=== PATIENT | female | born 1985 | race Caucasian/White ===

== ENCOUNTER 2016-06-28 16:20 | Outpatient (CLI) ==
[2015-12-22 23:30] VITALS: BMI 25.7
== END 2016-06-28 16:21 ==
LOC: AMBL 16:20
PROVIDERS: ATTEND Family Medicine
DX: M54.2 Cervicalgia (principal); V43.62XA Car passenger injured in collision with other type car in traffic accident, initial encounter

== ENCOUNTER 2017-04-01 18:21 | Emergency (ER) ==
[2017-04-01 18:24] VITALS: BP 128/92; TEMP 99; BMI 27.6
[2017-04-01] MEDS ORDERED: TORADOL IM STA (18:33)
--- NOTE | 2017-04-01 18:36 | ED.PDOC ---
General ED Provider: Dr. SON BEARD Chief Complaint: Back Pain Stated Complaint: BACK PAIN Time Seen by Physician: 18:22 Mode of Arrival: Walk-In Information Source: Patient Exam Limitations: No limitations Primary Care Provider: WALTER GARLAND Nursing and Triage Documentation Reviewed and Agree: Yes Musculoskeletal Complaint Exam - Back Pain Complaint/Exam Mechanism of Injury: Reports: No known trauma Onset/Duration: 18:22 Symptoms Are: Still present Timing: Constant Episodes Lasting: Hours Initial Severity: Moderate Current Severity: Moderate Location: Reports: Discrete Character: Reports: Aching Aggravating: Reports: Lifting, Bending, Walking Alleviating: Reports: Rest, Position Associated Signs and Symptoms: Denies: Swelling, Redness, Bruising, Fever, Weakness, Numbness, Tingling, Abdominal pain, Flank pain, Bladder incontinence, Bowel incontinence, Weight loss, Pain with weight bearing Related History: Reports: Similar episode TAD Risk Factors: Reports: None AAA Risk Factors: Reports: None Cauda Equina Risk Factors: Reports: None Review of Systems - Review Of Systems Constitutional: Reports: No symptoms Eyes: Reports: No symptoms Ears, Nose, Mouth, Throat: Reports: No symptoms Respiratory: Reports: No symptoms Cardiac: Reports: No symptoms GI: Reports: No symptoms : Reports: No symptoms Musculoskeletal: Reports: Back pain Skin: Reports: No symptoms Neurological: Reports: No symptoms Endocrine: Reports: No symptoms Hematologic/Lymphatic: Reports: No symptoms All Other Systems: Reviewed and Negative Past Medical History - Past Medical History Previously Healthy: No Endocrine: Reports: None Cardiovascular: Reports: None Respiratory: Reports: None Hematological: Reports: None Gastrointestinal: Reports: None Genitourinary: Reports: Kidney stones Neuro/Psych: Reports: Depression Musculoskeletal: Reports: None Cancer: Reports: None Last Menstrual Period: n/a - Surgical History General Surgical History: Reports: Hysterectomy, Tubal ligation (2014), C- section (x2), Cholecystectomy, Other (Leep procedure, diagnostic laproscopy, ) - Family History Family History: Reports: Unknown - Social History Smoking Status: Current every day smoker Hx Substance Use: No Alcohol Screening: None Physical Exam - Physical Exam Appearance: Well-appearing, No pain distress, Well-nourished Eyes: KAMLESH, EOMI, Conjunctiva clear ENT: Ears normal, Nose normal, Oropharynx normal Respiratory: Airway patent, Breath sounds clear, Breath sounds equal, Respirations nonlabored Cardiovascular: RRR, Pulses normal, No rub, No murmur GI/: Soft, Nontender, No masses, Bowel sounds normal, No Organomegaly Musculoskeletal: Normal strength, ROM intact, No edema, No calf tenderness Skin: Warm, Dry, Normal color Neurological: Sensation intact, Motor intact, Reflexes intact, Cranial nerves intact, Alert, Oriented Psychiatric: Affect appropriate, Mood appropriate Critical Care Note - Critical Care Note Total Time (mins): 0 Course - Course Orders, Labs, Meds: Orders Category Date Time Status Ketorolac Tromethamine [Toradol] MEDS 04/01/17 18:33 Stat 30 mg IM ONCE STA Medications Generic Name Dose Route Start Last Admin Trade Name Freq PRN Reason Stop Dose Admin Ketorolac Tromethamine 30 mg 04/01/17 18:33 Toradol IM 04/01/17 18:34 ONCE STA Vital Signs: Temp Pulse Resp BP Pulse Ox 04/01/17 18:22 99.0 F 94 H 16 128/92 H 98 Departure - Departure Time of Disposition: 18:35 Disposition: HOME SELF-CARE Discharge Problem: Backache Instructions: Acute Low Back Pain (ED) Condition: Good Pt referred to PMD for follow-up: Yes Additional Instructions: Please call your Family Physician as soon as possible to schedule a follow-up appointment. Allergies/Adverse Reactions: Allergies Penicillins Allergy (Mild, Verified 12/19/15 20:22) stomach cramps codeine Adverse Reaction (Verified 04/01/17 18:25) latex Adverse Reaction (Verified 12/19/15 20:22) Hives tramadol Adverse Reaction (Verified 04/01/17 18:25) Home Medications: Ambulatory Orders Citalopram Hydrobromide [Celexa] 40 mg PO DAILY 08/09/14 Olanzapine [Zyprexa] 5 mg PO BEDTIME 04/01/17 Omeprazole [Prilosec] 20 mg PO QDAC 04/01/17 Quetiapine Fumarate [Seroquel] 25 mg PO BEDTIME 04/01/17
== END 2017-04-01 19:08 | disposition home or self-care (01) ==
LOC: ED 18:21
DX: M54.9 Dorsalgia, unspecified (principal); F17.210 Nicotine dependence, cigarettes, uncomplicated
CPT/HCPCS: 96372; 99283

== ENCOUNTER 2017-04-22 18:41 | Emergency (ER) ==
[2017-04-22 18:41] VITALS: BMI 27.6
[2017-04-22 18:48] VITALS: BP 164/88; TEMP 99.1
--- NOTE | 2017-04-22 18:55 | ED.PDOC ---
General ED Provider: Dr. JETT SANTANA-ER Chief Complaint: Back Pain Stated Complaint: i hurt my back Time Seen by Physician: 18:53 Mode of Arrival: Walk-In Information Source: Patient, Family Exam Limitations: No limitations Primary Care Provider: WALTER GARLAND Nursing and Triage Documentation Reviewed and Agree: Yes Reviewed sepsis parameters & appropriate labs ordered?: Yes System Inflammatory Response Syndrome: Not Applicable Sepsis Protocol: For patient's 13 years and over: Temp is 96.8 and below OR 101 and greater Pulse >90 BPM Resp >20/minute Acutely Altered Mental Status Are patient's symptoms suggestive of a new infection, such as: -Pneumonia -Skin, Soft Tissue -Endocarditis -UTI -Bone, Joint Infection -Implantable Device -Acute Abdominal Infection -Wound Infection -Meningitis -Blood Stream Catheter Infection -Unknown Musculoskeletal Complaint Exam - Back Pain Complaint/Exam Mechanism of Injury: Reports: No known trauma Onset/Duration: 24hrs Symptoms Are: Still present Timing: Constant Initial Severity: Mild Current Severity: Moderate Location: Reports: Discrete Character: Reports: Dull, Spasmodic Aggravating: Reports: Movements, Lifting, Bending Alleviating: Reports: None Associated Signs and Symptoms: Denies: Swelling, Redness, Bruising, Fever, Weakness, Numbness, Tingling, Abdominal pain, Flank pain, Bladder incontinence, Bowel incontinence, Weight loss, Pain with weight bearing TAD Risk Factors: Reports: None AAA Risk Factors: Reports: None Cauda Equina Risk Factors: Reports: None Epidural Abcess Risk Factors: Reports: None Focal Tenderness: Yes Paraspinal Muscle Tenderness: Yes Paraspinal Muscle Spasm: No Scoliosis: No Lordosis: No Kyphosis: No SLR Test: Right Negative, Left Negative Hip Motion Testing Pain: Right Negative, Left Negative Focal Weakness: Present: None Focal Sensory Loss: Present: None Gait: Present: Abnormal Differential Diagnoses: Strain, Sprain Review of Systems - Review Of Systems Constitutional: Reports: No symptoms Eyes: Reports: No symptoms Ears, Nose, Mouth, Throat: Reports: No symptoms Respiratory: Reports: No symptoms Cardiac: Reports: No symptoms GI: Reports: No symptoms : Reports: No symptoms Musculoskeletal: Reports: Back pain, Muscle pain Skin: Reports: No symptoms Neurological: Reports: No symptoms Endocrine: Reports: No symptoms Hematologic/Lymphatic: Reports: No symptoms All Other Systems: Reviewed and Negative Past Medical History - Past Medical History Previously Healthy: No Endocrine: Reports: None Cardiovascular: Reports: None Respiratory: Reports: None Hematological: Reports: None Gastrointestinal: Reports: None Genitourinary: Reports: Kidney stones Neuro/Psych: Reports: Depression Musculoskeletal: Reports: None Cancer: Reports: None Last Menstrual Period: hysterectomy - Surgical History General Surgical History: Reports: Hysterectomy, Tubal ligation (2014), C- section (x2), Cholecystectomy, Other (Leep procedure, diagnostic laproscopy, ) - Family History Family History: Reports: Unknown - Social History Smoking Status: Current every day smoker Hx Substance Use: No Alcohol Screening: None Lives: With family Physical Exam - Physical Exam Appearance: Well-appearing, No pain distress, Well-nourished Pain Distress: Moderate Eyes: KAMLESH, EOMI, Conjunctiva clear ENT: Ears normal, Nose normal, Oropharynx normal Neck: Supple Respiratory: Airway patent, Breath sounds clear, Breath sounds equal, Respirations nonlabored Cardiovascular: RRR, Pulses normal, No rub, No murmur GI/: Soft, Nontender, No masses, Bowel sounds normal, No Organomegaly Musculoskeletal: Limited ROM Skin: Warm, Dry, Normal color Neurological: Sensation intact, Motor intact, Reflexes intact, Cranial nerves intact, Alert, Oriented Psychiatric: Affect appropriate, Mood appropriate Critical Care Note - Critical Care Note Total Time (mins): 0 Course - Course Vital Signs: Temp Pulse Resp BP Pulse Ox 04/22/17 18:41 99.1 F 106 H 20 164/88 H 99 Departure - Departure Time of Disposition: 18:55 Disposition: HOME SELF-CARE Discharge Problem: Lumbar strain Qualifiers: Encounter type: initial encounter Qualified Code(s): S39.012A - Strain of muscle, fascia and tendon of lower back, initial encounter Instructions: Low Back Strain (ED) Condition: Good Pt referred to PMD for follow-up: Yes Additional Instructions: percocet 5mg q 6hrs prn pain #10---flexeril 10mg tid #21--heat alt ice--f/u with pcp Allergies/Adverse Reactions: Allergies Penicillins Allergy (Mild, Verified 12/19/15 20:22) stomach cramps codeine Adverse Reaction (Verified 04/01/17 18:25) ketorolac [From Toradol] Adverse Reaction (Verified 04/22/17 18:49) latex Adverse Reaction (Verified 08/22/16 20:22) Hives tramadol Adverse Reaction (Verified 04/01/17 18:25) Home Medications: Ambulatory Orders Citalopram Hydrobromide [Celexa] 40 mg PO DAILY 08/09/14 Olanzapine [Zyprexa] 5 mg PO BEDTIME 04/01/17 Omeprazole [Prilosec] 20 mg PO QDAC 04/01/17 Quetiapine Fumarate [Seroquel] 25 mg PO BEDTIME 04/01/17 Disposition Discussed With: Patient, Family
== END 2017-04-22 19:03 | disposition home or self-care (01) ==
LOC: ED 18:41
DX: S39.012A Strain of muscle, fascia and tendon of lower back, initial encounter (principal); F17.210 Nicotine dependence, cigarettes, uncomplicated
CPT/HCPCS: 99282

== ENCOUNTER 2017-05-06 19:29 | Emergency (ER) ==
[2017-05-06 19:30] VITALS: BMI 27.6
[2017-05-06 19:37] VITALS: BP 131/90; TEMP 99.5
[2017-05-06] MEDS ORDERED: PHENERGAN 25 MG/ML VIAL IM STA (20:14)
[2017-05-06] MEDS ORDERED: DILAUDID 2 MG/ML SYRINGE IM STA (20:14)
--- NOTE | 2017-05-06 21:47 | CT ---
EXAM: CT of the abdomen and pelvis without contrast. HISTORY: Flank pain. Low back pain. PROCEDURE: Contiguous axial CT images of the abdomen and pelvis without contrast with coronal and sa gittal reformats. FINDINGS: The liver is normal in appearance. The gallbladder is surgically absent. The pancreas, sp taz, adrenal glands and kidneys are normal in appearance. No nephrolithiasis or hydronephrosis. The ureters are incompletely visualized. The abdominal aorta is normal in appearance. There are a few l oops of air and fluid-filled small bowel measuring up to 3 cm in diameter. The appendix is not defin itely visualized. The colon is normal in appearance. No free fluid or free air in the abdomen or pe lvis. The bladder is adequately filled with no abnormality identified. The uterus is surgically abse nt. The bones and soft tissues are unremarkable. Impression: No nephrolithiasis or hydronephrosis. The ureters are incompletely visualized and a non- obstructing ureterolith cannot be excluded. Nonspecific nonobstructive bowel gas pattern as described. Cholecystectomy. Hysterectomy.
--- NOTE | 2017-05-06 21:47 | CT ---
EXAM: CT lumbar spine without contrast HISTORY: Low back pain COMPARISON: None TECHNIQUE: CT lumbar spine performed without intravenous contrast. Coronal and sagittal reformatted images obtained. FINDINGS: Vertebral bodies normal height. No fracture. No subluxation. Intervertebral disc spaces maintained. Sacroiliac joints intact. Central canal and neural foramen grossly patent. No paraver tebral soft tissue abnormality. Please see separate report CT abdomen pelvis regarding findings in th e abdomen and pelvis. IMPRESSION: No fracture or subluxation.
--- NOTE | 2017-05-06 21:52 | ED.PDOC ---
General ED Provider: Dr. JETT SANTANA-ER Chief Complaint: Back Pain Stated Complaint: michela got back pain and im supposed to get mri of the back Time Seen by Physician: 19:35 Mode of Arrival: Walk-In Information Source: Patient Exam Limitations: No limitations Primary Care Provider: WALTER GARLAND Nursing and Triage Documentation Reviewed and Agree: Yes Reviewed sepsis parameters & appropriate labs ordered?: Yes System Inflammatory Response Syndrome: Not Applicable Sepsis Protocol: For patient's 13 years and over: Temp is 96.8 and below OR 101 and greater Pulse >90 BPM Resp >20/minute Acutely Altered Mental Status Are patient's symptoms suggestive of a new infection, such as: -Pneumonia -Skin, Soft Tissue -Endocarditis -UTI -Bone, Joint Infection -Implantable Device -Acute Abdominal Infection -Wound Infection -Meningitis -Blood Stream Catheter Infection -Unknown Musculoskeletal Complaint Exam - Back Pain Complaint/Exam Mechanism of Injury: Reports: No known trauma Onset/Duration: several weeks Symptoms Are: Still present Timing: Constant Initial Severity: Mild Current Severity: Moderate Location: Reports: Discrete Character: Reports: Dull, Aching, Stiffness Aggravating: Reports: Movements, Lifting, Walking Alleviating: Reports: None Associated Signs and Symptoms: Denies: Swelling, Redness, Bruising, Fever, Weakness, Numbness, Tingling, Abdominal pain, Flank pain, Bladder incontinence, Bowel incontinence, Weight loss, Pain with weight bearing Related History: Reports: Similar episode, Previous back injury Focal Tenderness: Yes Paraspinal Muscle Tenderness: Yes Paraspinal Muscle Spasm: No Scoliosis: No Focal Weakness: Present: None Focal Sensory Loss: Present: None Gait: Present: Normal Differential Diagnoses: Herniated Disk, Strain, Sprain Review of Systems - Review Of Systems Constitutional: Reports: No symptoms Eyes: Reports: No symptoms Ears, Nose, Mouth, Throat: Reports: No symptoms Respiratory: Reports: No symptoms Cardiac: Reports: No symptoms GI: Reports: No symptoms : Reports: No symptoms Musculoskeletal: Reports: Back pain, Muscle pain Skin: Reports: No symptoms Neurological: Reports: No symptoms Endocrine: Reports: No symptoms Hematologic/Lymphatic: Reports: No symptoms All Other Systems: Reviewed and Negative Past Medical History - Past Medical History Previously Healthy: No Endocrine: Reports: None Cardiovascular: Reports: None Respiratory: Reports: None Hematological: Reports: None Gastrointestinal: Reports: None Genitourinary: Reports: Kidney stones Neuro/Psych: Reports: Depression Musculoskeletal: Reports: None Cancer: Reports: None Last Menstrual Period: na - Surgical History General Surgical History: Reports: Hysterectomy, Tubal ligation (2014), C- section (x2), Cholecystectomy, Other (Leep procedure, diagnostic laproscopy, ) - Family History Family History: Reports: Unknown - Social History Smoking Status: Current every day smoker, Heavy tobacco smoker Hx Substance Use: No Alcohol Screening: None Lives: With family - Immunizations Tetanus Shot up to Date: Yes Physical Exam - Physical Exam Appearance: Well-appearing, No pain distress, Well-nourished Eyes: KAMLESH, EOMI, Conjunctiva clear ENT: Ears normal, Nose normal, Oropharynx normal Neck: Supple Respiratory: Airway patent, Breath sounds clear, Breath sounds equal, Respirations nonlabored Cardiovascular: RRR, Pulses normal, No rub, No murmur GI/: Soft, Nontender, No masses, Bowel sounds normal, No Organomegaly Musculoskeletal: Limited ROM Skin: Warm Neurological: Sensation intact, Motor intact, Reflexes intact, Cranial nerves intact, Alert, Oriented Psychiatric: Affect appropriate Interpretation - Radiology Interpretation Radiology Interpretation By: Radiologist Radiology Results: Negative Exam Interpreted: CT Scan Re-Evaluation - Re-Evaluation Time of Re-Evaluation: 21:52 Status: Improved Vital Signs Stable: Yes Pain Level: 2 Appearance: NAD Lungs: Clear Skin: Warm and Dry Neuro: Alert and Oriented X3 CV: RRR Critical Care Note - Critical Care Note Total Time (mins): 0 Course - Course Orders, Labs, Meds: Lab Review 05/06/17 05/06/17 20:15 20:17 Urine Color Yellow Urine Clarity Clear Urine pH 7.0 Ur Specific Lamar 1.010 Urine Protein Negative Urine Glucose (UA) Negative Urine Ketones Negative Urine Blood Trace-intact Urine Nitrite Negative Urine Bilirubin Negative Urine Urobilinogen 0.2 Ur Leukocyte Esterase Negative Urine Microscopic RBC 0-2 Ur Squamous Epith Cells Not present Urine Test Negative Orders Category Date Time Status UA [URINALYSIS C & S IF INDICATED] Stat LAB 05/06/17 20:15 Completed URINE Stat LAB 05/06/17 20:17 Completed Hydromorphone HCl/Pf [Dilaudid 2 mg/ml Syringe] MEDS 05/06/17 20:14 Discontinued 2 mg IM ONCE STA Promethazine HCl [Phenergan 25 mg/ml Vial] MEDS 05/06/17 20:14 Discontinued 25 mg IM ONCE STA CT ABDOMEN/PELVIS WO CONTRAST Stat RADS 05/06/17 20:[address] LUMBAR SPINE W/O CONTRAST Stat RADS 05/06/17 20:13 Completed Medications Discontinued Medications Generic Name Dose Route Start Last Admin Trade Name Christopher PRN Reason Stop Dose Admin Hydromorphone HCl 2 mg 05/06/17 20:14 05/06/17 20:28 Dilaudid 2 Mg/Ml Syringe IM 05/06/17 20:15 2 mg ONCE STA Administration Promethazine HCl 25 mg 05/06/17 20:14 05/06/17 20:28 Phenergan 25 Mg/Ml Vial IM 05/06/17 20:15 25 mg ONCE STA Administration Vital Signs: Temp Pulse Resp BP Pulse Ox 05/06/17 19:30 99.5 F 108 H 16 131/90 97 Departure - Departure Time of Disposition: 21:52 Disposition: HOME SELF-CARE Discharge Problem: Low back pain Qualifiers: Chronicity: acute Back pain laterality: midline Sciatica presence: without sciatica Qualified Code(s): M54.5 - Low back pain Instructions: Low Back Strain (GEN) Condition: Good Pt referred to PMD for follow-up: Yes Additional Instructions: f/u wtih pcp Allergies/Adverse Reactions: Allergies Penicillins Allergy (Mild, Verified 05/06/17 19:40) stomach cramps codeine Adverse Reaction (Verified 05/06/17 19:40) ketorolac [From Toradol] Adverse Reaction (Verified 05/06/17 19:40) latex Adverse Reaction (Verified 05/06/17 19:40) Hives tramadol Adverse Reaction (Verified 05/06/17 19:40) Home Medications: Ambulatory Orders Citalopram Hydrobromide [Celexa] 40 mg PO DAILY 08/09/14 Olanzapine [Zyprexa] 5 mg PO BEDTIME 04/01/17 Omeprazole [Prilosec] 20 mg PO QDAC 04/01/17 Quetiapine Fumarate [Seroquel] 25 mg PO BEDTIME 04/01/17 Ibuprofen 600 mg PO DIRECTED 05/06/17 Disposition Discussed With: Patient, Family
== END 2017-05-06 21:55 | disposition home or self-care (01) ==
LOC: ED 19:29
DX: M54.5 Low back pain (principal); F17.210 Nicotine dependence, cigarettes, uncomplicated
CPT/HCPCS: 81001; 81025; 96372; 99283

== ENCOUNTER 2017-05-25 19:38 | Emergency (ER) ==
[2017-05-25 19:38] VITALS: BMI 27.6
[2017-05-25 19:44] VITALS: BP 120/82; TEMP 98
[2017-05-25] MEDS ORDERED: PERCOCET 5-325 PO STA (19:58)
--- NOTE | 2017-05-25 20:01 | ED.PDOC ---
General ED Provider: Dr. ANTELMO HRENANDEZ Chief Complaint: Shoulder Pain/Injury Stated Complaint: Fell and injured the right shoulder, ever since more pain,. has h/o chronic pain. Time Seen by Physician: 20:00 Mode of Arrival: Walk-In Information Source: Patient Primary Care Provider: WALTER GARLAND Nursing and Triage Documentation Reviewed and Agree: Yes Reviewed sepsis parameters & appropriate labs ordered?: No System Inflammatory Response Syndrome: Not Applicable Sepsis Protocol: For patient's 13 years and over: Temp is 96.8 and below OR 101 and greater Pulse >90 BPM Resp >20/minute Acutely Altered Mental Status Are patient's symptoms suggestive of a new infection, such as: -Pneumonia -Skin, Soft Tissue -Endocarditis -UTI -Bone, Joint Infection -Implantable Device -Acute Abdominal Infection -Wound Infection -Meningitis -Blood Stream Catheter Infection -Unknown Musculoskeletal Complaint Exam - Shoulder Pain Complaint/Exam Mechanism of Injury: Reports: Trauma (fell and injured) Symptoms Are: Still present Timing: Constant Initial Severity: Moderate Current Severity: Moderate Location: Reports: Discrete Character: Reports: Aching, Throbbing Alleviating: Reports: None Aggravating: Reports: Movement, Lifting, Flexion, Extension Associated Signs and Symptoms: Denies: Swelling, Redness, Bruising, Fever, Weakness, Numbness, Tingling Related History: Reports: Similar episode (chronic pain) DVT Risk Factors: Reports: None Septic Arthritis Risk Factors: Reports: None Related Surgical History: Reports: None Tenderness: Present: Rotator cuff muscles Limited Range of Motion: Present: Abduction, Adduction, Flexion, Extension Differential Diagnoses: Arthritis, Closed Fracture Review of Systems - Review Of Systems Constitutional: Reports: No symptoms Eyes: Reports: No symptoms Ears, Nose, Mouth, Throat: Reports: No symptoms Respiratory: Reports: No symptoms Cardiac: Reports: No symptoms GI: Reports: No symptoms : Reports: No symptoms Musculoskeletal: Reports: Joint pain Skin: Reports: No symptoms Neurological: Reports: No symptoms Endocrine: Reports: No symptoms Hematologic/Lymphatic: Reports: No symptoms All Other Systems: Reviewed and Negative Past Medical History - Past Medical History Previously Healthy: No Endocrine: Reports: None Cardiovascular: Reports: None Respiratory: Reports: None Hematological: Reports: None Gastrointestinal: Reports: None Genitourinary: Reports: Kidney stones Neuro/Psych: Reports: Depression Musculoskeletal: Reports: None Cancer: Reports: None Last Menstrual Period: na - Surgical History General Surgical History: Reports: Hysterectomy, Tubal ligation (2014), C- section (x2), Cholecystectomy, Other (Leep procedure, diagnostic laproscopy, ) - Family History Family History: Reports: Unknown - Social History Smoking Status: Current every day smoker, Heavy tobacco smoker Smoking Cessation Counseling Time: > 10 min Hx Substance Use: No Alcohol Screening: None - Immunizations Tetanus Shot up to Date: Yes Physical Exam - Physical Exam Appearance: Ill-appearing Eyes: KAMLESH, EOMI, Conjunctiva clear ENT: Ears normal, Nose normal, Oropharynx normal Respiratory: Airway patent, Breath sounds clear, Breath sounds equal, Respirations nonlabored Cardiovascular: RRR, Pulses normal, No rub, No murmur GI/: Soft, Nontender, No masses, Bowel sounds normal, No Organomegaly Musculoskeletal: Limited ROM, Limited strength Skin: Warm, Dry, Normal color Neurological: Sensation intact, Motor intact, Reflexes intact, Cranial nerves intact, Alert, Oriented Psychiatric: Affect appropriate, Mood appropriate Interpretation - Radiology Interpretation Radiology Interpretation By: Radiologist Radiology Results: Negative Critical Care Note - Critical Care Note Total Time (mins): 15 Course - Course Orders, Labs, Meds: Orders Category Date Time Status Oxycodone-Acetaminophen 5-325 [Percocet 5-325] MEDS 05/25/17 19:58 Discontinued 1 tab PO ONCE STA SCAPULA, RIGHT Stat RADS 05/25/17 20:10 Taken SHOULDER, RIGHT MIN 2V Stat RADS 05/25/17 20:10 Taken Medications Discontinued Medications Generic Name Dose Route Start Last Admin Trade Name Freq PRN Reason Stop Dose Admin Oxycodone/Acetaminophen 1 tab 05/25/17 19:58 05/25/17 20:17 Percocet 5-325 PO 05/25/17 19:59 1 tab ONCE STA Administration Vital Signs: Temp Pulse Resp BP Pulse Ox 05/25/17 19:39 98 F 105 H 20 120/82 99 Departure - Departure Time of Disposition: 21:14 Disposition: HOME SELF-CARE Discharge Problem: Shoulder pain Instructions: Shoulder Sprain (ED) Condition: Stable Pt referred to PMD for follow-up: Yes IPMP verified?: No Additional Instructions: rest hot pack if not better have f/u with PMD Prescriptions: Oxycodone HCl/Acetaminophen [Percocet 5-325 mg Tablet] 1 tab PO TID PRN #7 tablet PRN Reason: PAIN Allergies/Adverse Reactions: Allergies Penicillins Allergy (Mild, Verified 05/06/17 19:40) stomach cramps codeine Adverse Reaction (Verified 05/06/17 19:40) ketorolac [From Toradol] Adverse Reaction (Verified 05/06/17 19:40) latex Adverse Reaction (Verified 05/06/17 19:40) Hives tramadol Adverse Reaction (Verified 05/06/17 19:40) Home Medications: Ambulatory Orders Citalopram Hydrobromide [Celexa] 40 mg PO DAILY 08/09/14 Olanzapine [Zyprexa] 5 mg PO BEDTIME 04/01/17 Omeprazole [Prilosec] 20 mg PO QDAC 04/01/17 Quetiapine Fumarate [Seroquel] 25 mg PO BEDTIME 04/01/17 Ibuprofen 600 mg PO DIRECTED 05/06/17 Oxycodone HCl/Acetaminophen [Percocet 5-325 mg Tablet] 1 tab PO TID PRN #7 tablet 05/25/17 Disposition Discussed With: Patient, Family
--- NOTE | 2017-05-26 01:06 | DI ---
EXAM: Right shoulder, three views HISTORY: Injury, pain on the COMPARISON: None. FINDINGS: The alignment is normal. Joint spaces appear normal. No fracture is identified. IMPRESSION: No fracture or dislocation is identified.
--- NOTE | 2017-05-26 01:07 | DI ---
EXAM: Right scapula, three views HISTORY: Injury, pain COMPARISON: None. FINDINGS: The alignment is normal. Joint spaces appear normal. No fracture is identified. IMPRESSION: No fracture or dislocation is identified.
== END 2017-05-25 21:24 | disposition home or self-care (01) ==
LOC: ED 19:38
DX: M25.511 Pain in right shoulder (principal); W19.XXXA Unspecified fall, initial encounter; F17.210 Nicotine dependence, cigarettes, uncomplicated
CPT/HCPCS: 99282

== ENCOUNTER 2017-06-30 16:56 | Emergency (ER) ==
[2017-06-30 16:56] VITALS: BMI 27.6
[2017-06-30 16:59] VITALS: BP 155/93; TEMP 98.5
--- NOTE | 2017-06-30 17:12 | ED.PDOC ---
General ED Provider: Dr. JETT SANTANA-ER Chief Complaint: Back Pain Stated Complaint: i was moving furniture and fell onto my bottom--my lower back hurts Time Seen by Physician: 17:11 Mode of Arrival: Walk-In Information Source: Patient Exam Limitations: No limitations Primary Care Provider: WALTER GARLAND Nursing and Triage Documentation Reviewed and Agree: Yes Reviewed sepsis parameters & appropriate labs ordered?: Yes System Inflammatory Response Syndrome: Not Applicable Sepsis Protocol: For patient's 13 years and over: Temp is 96.8 and below OR 101 and greater Pulse >90 BPM Resp >20/minute Acutely Altered Mental Status Are patient's symptoms suggestive of a new infection, such as: -Pneumonia -Skin, Soft Tissue -Endocarditis -UTI -Bone, Joint Infection -Implantable Device -Acute Abdominal Infection -Wound Infection -Meningitis -Blood Stream Catheter Infection -Unknown Musculoskeletal Complaint Exam - Back Pain Complaint/Exam Mechanism of Injury: Reports: Trauma Onset/Duration: 6 hrs Symptoms Are: Still present Timing: Constant Initial Severity: Mild Current Severity: Moderate Location: Reports: Discrete Character: Reports: Dull, Aching, Spasmodic, Stiffness Aggravating: Reports: Movements, Lifting, Bending, Walking Alleviating: Reports: None Associated Signs and Symptoms: Denies: Swelling, Redness, Bruising, Fever, Weakness, Numbness, Tingling, Abdominal pain, Flank pain, Bladder incontinence, Bowel incontinence, Weight loss, Pain with weight bearing Cauda Equina Risk Factors: Reports: None Epidural Abcess Risk Factors: Reports: None Focal Tenderness: Yes Paraspinal Muscle Tenderness: Yes Paraspinal Muscle Spasm: No Scoliosis: No Lordosis: No Kyphosis: No SLR Test: Right Negative, Left Negative Hip Motion Testing Pain: Right Positive, Right Negative, Left Negative Focal Sensory Loss: Present: None Gait: Present: Abnormal Differential Diagnoses: Fracture, Herniated Disk, Strain, Sprain Review of Systems - Review Of Systems Constitutional: Reports: No symptoms Eyes: Reports: No symptoms Ears, Nose, Mouth, Throat: Reports: No symptoms Respiratory: Reports: No symptoms Cardiac: Reports: No symptoms GI: Reports: No symptoms : Reports: No symptoms Musculoskeletal: Reports: Back pain Skin: Reports: No symptoms Neurological: Reports: No symptoms Endocrine: Reports: No symptoms Hematologic/Lymphatic: Reports: No symptoms All Other Systems: Reviewed and Negative Past Medical History - Past Medical History Previously Healthy: No Endocrine: Reports: None Cardiovascular: Reports: None Respiratory: Reports: None Hematological: Reports: None Gastrointestinal: Reports: None Genitourinary: Reports: Kidney stones Neuro/Psych: Reports: Depression Musculoskeletal: Reports: None Cancer: Reports: None Last Menstrual Period: hysterectomy - Surgical History General Surgical History: Reports: Hysterectomy, Tubal ligation (2014), C- section (x2), Cholecystectomy, Other (Leep procedure, diagnostic laproscopy, ) - Family History Family History: Reports: Unknown - Social History Smoking Status: Current every day smoker, Heavy tobacco smoker Hx Substance Use: No Alcohol Screening: None Physical Exam - Physical Exam Appearance: Well-appearing, No pain distress, Well-nourished Pain Distress: Moderate Eyes: KAMLESH, EOMI, Conjunctiva clear ENT: Ears normal, Nose normal, Oropharynx normal Neck: Supple Respiratory: Airway patent, Breath sounds clear, Breath sounds equal, Respirations nonlabored Cardiovascular: RRR, Pulses normal, No rub, No murmur GI/: Soft, Nontender, No masses, Bowel sounds normal, No Organomegaly Musculoskeletal: Normal strength Skin: Warm Neurological: Sensation intact Psychiatric: Affect appropriate, Mood appropriate Interpretation - Radiology Interpretation Radiology Interpretation By: Radiologist Radiology Results: Negative Exam Interpreted: CT Scan Critical Care Note - Critical Care Note Total Time (mins): 0 Course - Course Orders, Labs, Meds: Orders Category Date Time Status CT LUMBAR SPINE W/O CONTRAST Stat RADS 06/30/17 17:09 Completed Vital Signs: Temp Pulse Resp BP Pulse Ox 06/30/17 16:56 98.5 F 101 H 20 155/93 H 98 Departure - Departure Time of Disposition: 17:44 Disposition: HOME SELF-CARE Discharge Problem: Back pain Qualifiers: Back pain location: low back pain Chronicity: acute Back pain laterality: midline Sciatica presence: with sciatica Sciatica laterality: sciatica laterality unspecified Qualified Code(s): M54.40 - Lumbago with sciatica, unspecified side Sciatica Qualifiers: Laterality: unspecified laterality Qualified Code(s): M54.30 - Sciatica, unspecified side Instructions: Sciatica (ED) Condition: Good Pt referred to PMD for follow-up: Yes IPMP verified?: No Additional Instructions: medrol dose pack--percocet 5mg q 4hrs prn pain #10---f/u with pcp Allergies/Adverse Reactions: Allergies Penicillins Allergy (Mild, Verified 06/30/17 17:01) stomach cramps codeine Adverse Reaction (Verified 06/30/17 17:01) ketorolac [From Toradol] Adverse Reaction (Verified 06/30/17 17:01) latex Adverse Reaction (Verified 06/30/17 17:01) Hives tramadol Adverse Reaction (Verified 06/30/17 17:01) Home Medications: Ambulatory Orders Citalopram Hydrobromide [Celexa] 40 mg PO DAILY 08/09/14 Olanzapine [Zyprexa] 5 mg PO BEDTIME 04/01/17 Omeprazole [Prilosec] 20 mg PO QDAC 04/01/17 Quetiapine Fumarate [Seroquel] 25 mg PO BEDTIME 04/01/17 Ibuprofen 600 mg PO DIRECTED 05/06/17 Disposition Discussed With: Patient
--- NOTE | 2017-06-30 17:39 | CT ---
EXAM: CT lumbar spine without intravenous contrast 06/30/2017. Sagittal and coronal reformatted chavo ges obtained HISTORY: Fall. Back pain COMPARISON: 05/06/2017 FINDINGS: Normal anatomic alignment is maintained. Vertebral bodies appear intact without fracture. The facet joints align normally. There is no fracture or subluxation identified at any level. Mild degenerative disc disease. Small areas of posterior disc bulge at the lower lumbar spine cause flattening of the thecal sac. No spinal stenosis identified. IMPRESSION: No acute osseous abnormality of the lumbar spine.
== END 2017-06-30 17:52 | disposition home or self-care (01) ==
LOC: ED 16:56
DX: M54.40 Lumbago with sciatica, unspecified side (principal); M54.30 Sciatica, unspecified side; W19.XXXA Unspecified fall, initial encounter; F17.210 Nicotine dependence, cigarettes, uncomplicated
CPT/HCPCS: 99283

== ENCOUNTER 2017-08-05 15:55 | Emergency (ER) ==
[2017-08-05 16:06] VITALS: BP 129/88; TEMP 97.9; BMI 28.8
--- NOTE | 2017-08-05 16:26 | ED.PDOC ---
General ED Provider: Dr. SON BEARD Chief Complaint: Back Pain Stated Complaint: back pain Time Seen by Physician: 16:00 (SEEN WITH SHERMAN) Mode of Arrival: Walk-In Information Source: Patient Exam Limitations: No limitations Primary Care Provider: PJ SOTO Nursing and Triage Documentation Reviewed and Agree: Yes Reviewed sepsis parameters & appropriate labs ordered?: No System Inflammatory Response Syndrome: Not Applicable Sepsis Protocol: For patient's 13 years and over: Temp is 96.8 and below OR 101 and greater Pulse >90 BPM Resp >20/minute Acutely Altered Mental Status Are patient's symptoms suggestive of a new infection, such as: -Pneumonia -Skin, Soft Tissue -Endocarditis -UTI -Bone, Joint Infection -Implantable Device -Acute Abdominal Infection -Wound Infection -Meningitis -Blood Stream Catheter Infection -Unknown System Inflammatory Response Syndrome: Not Applicable Musculoskeletal Complaint Exam - Back Pain Complaint/Exam Mechanism of Injury: Reports: No known trauma Onset/Duration: chronic issue worse today Symptoms Are: Still present Timing: Intermittent Episodes Lasting: Weeks Initial Severity: Moderate Current Severity: Mild Location: Reports: Diffuse Character: Reports: Aching Aggravating: Reports: Movements, Lifting, Bending, Walking Alleviating: Reports: Rest, Position Associated Signs and Symptoms: Denies: Swelling, Redness, Bruising, Fever, Weakness, Numbness, Tingling, Abdominal pain, Flank pain, Bladder incontinence, Bowel incontinence, Weight loss, Pain with weight bearing Related History: Reports: Similar episode TAD Risk Factors: Reports: None AAA Risk Factors: Reports: None Cauda Equina Risk Factors: Reports: None Epidural Abcess Risk Factors: Reports: None Related Surgical History: Reports: None Focal Tenderness: No Paraspinal Muscle Tenderness: No Paraspinal Muscle Spasm: No Scoliosis: No Lordosis: No Kyphosis: No SLR Test: Right Negative, Left Negative Hip Motion Testing Pain: Right Negative, Left Negative Focal Weakness: Present: None Focal Sensory Loss: Present: None Gait: Present: Normal Differential Diagnoses: Strain, Sprain Review of Systems - Review Of Systems Constitutional: Reports: No symptoms Eyes: Reports: No symptoms Ears, Nose, Mouth, Throat: Reports: No symptoms Respiratory: Reports: No symptoms Cardiac: Reports: No symptoms GI: Reports: No symptoms : Reports: No symptoms Musculoskeletal: Reports: Back pain Skin: Reports: No symptoms Neurological: Reports: No symptoms Endocrine: Reports: No symptoms Hematologic/Lymphatic: Reports: No symptoms All Other Systems: Reviewed and Negative Past Medical History - Past Medical History Previously Healthy: No Endocrine: Reports: None Cardiovascular: Reports: None Respiratory: Reports: None Hematological: Reports: None Gastrointestinal: Reports: None Genitourinary: Reports: Kidney stones Neuro/Psych: Reports: Depression Musculoskeletal: Reports: None Cancer: Reports: None Last Menstrual Period: unknown - Surgical History General Surgical History: Reports: Hysterectomy, Tubal ligation (2014), C- section (x2), Cholecystectomy, Other (Leep procedure, diagnostic laproscopy, ) - Family History Family History: Reports: Unknown - Social History Smoking Status: Current every day smoker, Heavy tobacco smoker Hx Substance Use: No Alcohol Screening: None Physical Exam - Physical Exam Appearance: Well-appearing, No pain distress, Well-nourished Eyes: KAMLESH, EOMI, Conjunctiva clear ENT: Ears normal, Nose normal, Oropharynx normal Respiratory: Airway patent, Breath sounds clear, Breath sounds equal, Respirations nonlabored Cardiovascular: RRR, Pulses normal, No rub, No murmur GI/: Soft, Nontender, No masses, Bowel sounds normal, No Organomegaly Musculoskeletal: Normal strength, ROM intact, No edema, No calf tenderness Skin: Warm, Dry, Normal color Neurological: Sensation intact, Motor intact, Reflexes intact, Cranial nerves intact, Alert, Oriented Psychiatric: Affect appropriate, Mood appropriate Critical Care Note - Critical Care Note Total Time (mins): 0 Course - Course Vital Signs: Temp Pulse Resp BP Pulse Ox 08/05/17 15:56 97.9 F 88 20 129/88 98 Departure - Departure Time of Disposition: 16:25 (seen at all times with SHERMAN) Disposition: HOME SELF-CARE Discharge Problem: Backache, Chronic low back pain with left-sided sciatica Instructions: Sciatica (ED), Lower Back Exercises (ED) Condition: Good Pt referred to PMD for follow-up: Yes IPMP verified?: No Additional Instructions: Please call your Family Physician as soon as possible to schedule a follow-up appointment. Allergies/Adverse Reactions: Allergies Penicillins Allergy (Mild, Verified 08/05/17 16:07) stomach cramps codeine Adverse Reaction (Verified 08/05/17 16:07) ketorolac [From Toradol] Adverse Reaction (Verified 08/05/17 16:07) latex Adverse Reaction (Verified 08/05/17 16:07) Hives tramadol Adverse Reaction (Verified 08/05/17 16:07) Home Medications: Ambulatory Orders Citalopram Hydrobromide [Celexa] 40 mg PO DAILY 08/09/14 Olanzapine [Zyprexa] 5 mg PO BEDTIME 04/01/17 Omeprazole [Prilosec] 20 mg PO QDAC 04/01/17 Quetiapine Fumarate [Seroquel] 25 mg PO BEDTIME 04/01/17 Atorvastatin Calcium [Lipitor] 10 mg PO BEDTIME 08/05/17 Furosemide [Lasix] 20 mg PO DAILY 08/05/17 Disposition Discussed With: Patient, Family
[2017-08-05] MEDS ORDERED: DECADRON 4 MG/ML SDV IM STA (16:27)
== END 2017-08-05 17:00 | disposition home or self-care (01) ==
LOC: ED 15:55
DX: M54.42 Lumbago with sciatica, left side (principal); G89.29 Other chronic pain; F17.210 Nicotine dependence, cigarettes, uncomplicated
CPT/HCPCS: 96372; 99282

== ENCOUNTER 2017-10-07 12:55 | Emergency (ER) ==
[2017-10-07 13:11] VITALS: BP 147/99; TEMP 98.9; BMI 28.0
--- NOTE | 2017-10-07 13:32 | ED.PDOC ---
General ED Provider: Dr. SON BEARD Chief Complaint: Headache Stated Complaint: headache Time Seen by Physician: 13:00 (seen at all times by dorothy CORONADO ) Mode of Arrival: Walk-In Information Source: Patient Exam Limitations: No limitations Primary Care Provider: PJ SOTO Nursing and Triage Documentation Reviewed and Agree: Yes Reviewed sepsis parameters & appropriate labs ordered?: Yes System Inflammatory Response Syndrome: Not Applicable Sepsis Protocol: For patient's 13 years and over: Temp is 96.8 and below OR 101 and greater Pulse >90 BPM Resp >20/minute Acutely Altered Mental Status Are patient's symptoms suggestive of a new infection, such as: -Pneumonia -Skin, Soft Tissue -Endocarditis -UTI -Bone, Joint Infection -Implantable Device -Acute Abdominal Infection -Wound Infection -Meningitis -Blood Stream Catheter Infection -Unknown Neurological Complaint Exam - Headache Complaint/Exam Onset: Gradual Duration: onset this morning Timing: Constant Episodes Lasting: Hours Worst Headache Ever: No Initial Severity: Moderate Current Severity: Mild Location: Frontal, Temporal Character: Reports: Throbbing Aggravating: Reports: None Alleviating: Reports: None Associated Signs and Symptoms: Denies: Dizziness, Seizure, Nausea, Vomiting, Sinus pressure, Fever, Neck pain, Neck stiffness, Decreased LOC, Visual changes Related Surgical History: Reports: None SAH Risk Factors: Reports: None Meningitis Risk Factors: Reports: None SDH Risk Factors: Reports: None Temporal Arteritis Risk Factors: Reports: Female, Normal Head CT Within Last 12 Months: Yes (last week at ) Fundoscopic Exam: Present: Normal Findings Papilledema Present: No Temporal Artery Tenderness: Present: None Sinus Tenderness: Present: None TMJ Tenderness: Present: None Glascow Coma Scale (see protocol): 15 Meningeal Signs Positive: No Pain on Passive Flexion-Positive Kernig's: No ROM Limited In: No Limitiations Focal Weakness: Present: None Focal Sensory Loss: Present: None Gait: Normal Nystagmus Present: No Gag Reflex Present: Yes Babinski Sign: Negative Right, Negative Left Differential Diagnoses: Migraine, Tension Headache Review of Systems - Review Of Systems Constitutional: Reports: No symptoms Eyes: Reports: No symptoms Ears, Nose, Mouth, Throat: Reports: No symptoms Respiratory: Reports: No symptoms Cardiac: Reports: No symptoms GI: Reports: No symptoms : Reports: No symptoms Musculoskeletal: Reports: No symptoms Skin: Reports: No symptoms Neurological: Reports: Headache Endocrine: Reports: No symptoms Hematologic/Lymphatic: Reports: No symptoms All Other Systems: Reviewed and Negative Past Medical History - Past Medical History Previously Healthy: No Endocrine: Reports: None Cardiovascular: Reports: None Respiratory: Reports: None Hematological: Reports: None Gastrointestinal: Reports: None Genitourinary: Reports: Kidney stones Neuro/Psych: Reports: Depression Musculoskeletal: Reports: None Cancer: Reports: None Last Menstrual Period: hysterectomy - Surgical History General Surgical History: Reports: Hysterectomy, Tubal ligation (2014), C- section (x2), Cholecystectomy, Other (Leep procedure, diagnostic laproscopy, ) - Family History Family History: Reports: Unknown - Social History Smoking Status: Current every day smoker, Heavy tobacco smoker Hx Substance Use: No Alcohol Screening: None Physical Exam - Physical Exam Appearance: Well-appearing, No pain distress, Well-nourished Eyes: KAMLESH, EOMI, Conjunctiva clear ENT: Ears normal, Nose normal, Oropharynx normal Respiratory: Airway patent, Breath sounds clear, Breath sounds equal, Respirations nonlabored Cardiovascular: RRR, Pulses normal, No rub, No murmur GI/: Soft, Nontender, No masses, Bowel sounds normal, No Organomegaly Musculoskeletal: Normal strength, ROM intact, No edema, No calf tenderness Skin: Warm, Dry, Normal color Neurological: Sensation intact, Motor intact, Reflexes intact, Cranial nerves intact, Alert, Oriented Psychiatric: Affect appropriate, Mood appropriate Critical Care Note - Critical Care Note Total Time (mins): 0 Course - Course Vital Signs: Temp Pulse Resp BP Pulse Ox 10/07/17 12:57 98.9 F 107 H 18 147/99 H 96 Departure - Departure Time of Disposition: 13:32 (I SPOKE WITH THE PT WITH HER NURSE CHRISTIANO PRESENT AT ALL TIMES, HEADACHE NEED FOR FOLLOW UP DISCUSSED MRI DISCUSSED ) Disposition: HOME SELF-CARE Discharge Problem: Headache Instructions: Acute Headache (ED), Migraine Headache (ED) Condition: Good Pt referred to PMD for follow-up: Yes IPMP verified?: No Additional Instructions: Please call your Family Physician as soon as possible to schedule a follow-up appointment. Allergies/Adverse Reactions: Allergies Penicillins Allergy (Mild, Verified 10/07/17 13:06) stomach cramps codeine Adverse Reaction (Verified 10/07/17 13:06) ketorolac [From Toradol] Adverse Reaction (Verified 10/07/17 13:06) latex Adverse Reaction (Verified 10/07/17 13:06) Hives tramadol Adverse Reaction (Verified 10/07/17 13:06) Home Medications: Ambulatory Orders Citalopram Hydrobromide [Celexa] 40 mg PO DAILY 08/09/14 Olanzapine [Zyprexa] 5 mg PO BEDTIME 04/01/17 Omeprazole [Prilosec] 20 mg PO BID 04/01/17 Quetiapine Fumarate [Seroquel] 25 mg PO BEDTIME 04/01/17 Atorvastatin Calcium [Lipitor] 10 mg PO BEDTIME 08/05/17 Furosemide [Lasix] 20 mg PO DAILY 08/05/17 Gabapentin 300 mg PO TID PRN 10/07/17 Potassium Chloride [K-Dur] 20 meq PO BID 10/07/17 Disposition Discussed With: Patient, Family
== END 2017-10-07 13:42 | disposition home or self-care (01) ==
LOC: ED 12:55
DX: R51 Headache (principal); F17.210 Nicotine dependence, cigarettes, uncomplicated
CPT/HCPCS: 99283

== ENCOUNTER 2017-12-02 23:29 | Emergency (ER) ==
[2017-12-02 23:38] VITALS: BP 118/90; TEMP 97.2; BMI 27.1
[2017-12-03] MEDS ORDERED: FLEXERIL PO STA (00:05)
[2017-12-03] MEDS ORDERED: MOBIC PO STA (00:05)
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
== END 2017-12-03 00:55 | disposition home or self-care (01) ==
LOC: ED 23:29
DX: M54.2 Cervicalgia (principal); M25.50 Pain in unspecified joint
CPT/HCPCS: 99282

== ENCOUNTER 2018-10-12 00:56 | Emergency (ER) ==
[2018-10-12 01:04] VITALS: BP 130/79; TEMP 97.5; BMI 26.0
--- NOTE | 2018-10-12 01:48 | ED.PDOC ---
General ED Provider: Dr. ANTONIETTA PACHECO Chief Complaint: Cough Stated Complaint: ulse Ox 98left ear hurting,popped.Cough withg minimal product.Reporting fevers but presenting afebrile.Tachypnoe.Pulse Ox 98. Time Seen by Physician: 01:50 Mode of Arrival: Walk-In Information Source: Patient Exam Limitations: No limitations Primary Care Provider: GUILLERMO SOTO Nursing and Triage Documentation Reviewed and Agree: Yes Does patient meet sepsis criteria?: No System Inflammatory Response Syndrome: Not Applicable Sepsis Protocol: For patient's 13 years and over: Temp is 96.8 and below OR 101 and greater Pulse >90 BPM Resp >20/minute Acutely Altered Mental Status Are patient's symptoms suggestive of a new infection, such as: -Pneumonia -Skin, Soft Tissue -Endocarditis -UTI -Bone, Joint Infection -Implantable Device -Acute Abdominal Infection -Wound Infection -Meningitis -Blood Stream Catheter Infection -Unknown Respiratory Complaint Exam - Asthma Complaint/Exam Onset/Duration: few days Symptoms Are: Still present Timing: Intermittent Initial Severity: Mild Current Severity: Mild Character: Reports: Wheezing Aggravating: Reports: Exertion, Smoke exposure, Weather change Alleviating: Reports: Inhalers, Nebulizers Associated Signs and Symptoms: Reports: Rapid breathing Related History: Reports: Similar episode Related Surgical History: Reports: None Status Asthmaticus Risk Factors: Reports: Rx non-compliance, Smoke exposure Current Asthma Medication Usage: No Recent Antibiotics: No Respiratory Distress: Mild Accessory Muscle Use: No Retractions: Not Present Diminished Breath Sounds: No Prolonged Expiratory Phase: No Unable to Speak Full Sentences: No Fatigue Present: No Differential Diagnoses: Acute Asthma, Bronchitis, COPD Exacerbation, Pneumonia Review of Systems - Review Of Systems Constitutional: Reports: No symptoms Eyes: Reports: No symptoms Ears, Nose, Mouth, Throat: Reports: No symptoms Respiratory: Reports: Cough Cardiac: Reports: No symptoms GI: Reports: No symptoms : Reports: No symptoms Musculoskeletal: Reports: No symptoms Skin: Reports: No symptoms Neurological: Reports: No symptoms Endocrine: Reports: No symptoms Hematologic/Lymphatic: Reports: No symptoms All Other Systems: Reviewed and Negative Past Medical History - Past Medical History Previously Healthy: No Endocrine: Reports: None Cardiovascular: Reports: None Respiratory: Reports: None Hematological: Reports: None Gastrointestinal: Reports: None Genitourinary: Reports: Kidney stones Neuro/Psych: Reports: Depression Musculoskeletal: Reports: None Cancer: Reports: None Last Menstrual Period: PT HAS HAD A HYSTERCTOMY - Surgical History General Surgical History: Reports: Hysterectomy, Tubal ligation (2014), C- section (x2), Cholecystectomy, Other (Leep procedure, diagnostic laproscopy, ) - Family History Family History: Reports: Unknown - Social History Smoking Status: Current every day smoker, Heavy tobacco smoker Hx Substance Use: No Alcohol Screening: Occasionally - Immunizations Tetanus Shot up to Date: Yes Physical Exam - Physical Exam Appearance: Well-appearing Ill-appearing: None Pain Distress: None Eyes: KAMLESH, EOMI, Conjunctiva clear ENT: Erythema Respiratory: Breath sounds diminished, Wheezes Cardiovascular: RRR, Pulses normal GI/: Soft, Nontender, No masses Musculoskeletal: Normal strength, ROM intact Skin: Warm, Dry Neurological: Sensation intact, Motor intact, Reflexes intact, Cranial nerves intact, Alert, Oriented Psychiatric: Affect appropriate Critical Care Note - Critical Care Note Total Time (mins): 0 Course - Course Hematology/Chemistry: 10/12/18 02:00 Orders, Labs, Meds: Lab Review 10/12/18 10/12/18 02:00 02:00 WBC 10.42 H RBC 4.23 Hgb 12.5 Hct 37.7 MCV 89.1 MCH 29.6 MCHC 33.2 RDW Coeff of Javan 12.4 Plt Count 305 Immature Gran % (Auto) 0.5 Neut % (Auto) 68.5 Lymph % (Auto) 22.8 [place] % (Auto) 7.1 Eos % (Auto) 0.7 Baso % (Auto) 0.4 Immature Gran # (Auto) 0.1 Neut # (Auto) 7.1 H Lymph # (Auto) 2.4 [place] # (Auto) 0.7 Eos # (Auto) 0.1 Baso # (Auto) 0.0 Influ A Molecular Assay Negative by naat Influ B Molecular Assay Negative by naat Orders Category Date Time Status NEBULIZER TREATMENT Stat CARDIO 10/12/18 01:54 Completed IV [ED IV/MEDIPORT/POWERPORT] .ONCE EMERGENCY 10/12/18 02:40 Active CBC W/ AUTO DIFF Stat LAB 10/12/18 02:00 Completed FLU A/B MOLECULAR Stat LAB 10/12/18 02:00 Completed MOLECULAR GROUP A STREP Stat LAB 10/12/18 02:00 Completed 0.9 % Sodium Chloride [Saline Flush] MEDS 10/12/18 02:40 Ordered 1 syr IVF PRN PRN Albuterol Sulfate 0.083% Neb [Albuterol 0.083% Neb] MEDS 10/12/18 01:54 Discontinued 1 vial NEB ONCE STA Methylprednisolone Sod Succ/Pf [Solu-Medrol 125 mg] MEDS 10/12/18 02:41 Discontinued 80 mg IVP ONCE STA Sodium Chloride 0.9% [Sodium Chloride] 1,000 ml MEDS 10/12/18 02:41 Discontinued IV BOLUS CHEST, 2 VIEWS PA & LAT Stat RADS 10/12/18 01:53 Completed Medications Generic Name Dose Route Start Last Admin Trade Name Freq PRN Reason Stop Dose Admin Sodium Chloride 1 syr 10/12/18 02:40 Saline Flush IVF PRN PRN To flush IV Discontinued Medications Generic Name Dose Route Start Last Admin Trade Name Freq PRN Reason Stop Dose Admin Albuterol Sulfate 1 vial 10/12/18 01:54 10/12/18 02:04 Albuterol 0.083% Neb NEB 10/12/18 01:55 1 vial ONCE STA Administration Sodium Chloride 1,000 mls @ 1,000 mls/hr 10/12/18 02:41 10/12/18 03:11 Sodium Chloride IV 10/12/18 03:40 1,000 mls/hr BOLUS STA Administration Methylprednisolone Sodium Succinate 80 mg 10/12/18 02:41 10/12/18 03:12 Solu-Medrol 125 Mg IVP 10/12/18 02:42 80 mg ONCE STA Administration Vital Signs: Temp Pulse Resp BP Pulse Ox 10/12/18 00:57 97.5 F L 73 100 H 130/79 98 Departure - Departure Time of Disposition: 03:47 Disposition: HOME SELF-CARE Discharge Problem: Bronchitis Instructions: Pharyngitis (ED) Condition: Good Pt referred to PMD for follow-up: Yes IPMP verified?: No Additional Instructions: Albuterol inhaler 1 puff tid prn,,Prednisone tab a 20 mg ttab qd x 5 days, Allergies/Adverse Reactions: Allergies Penicillins Allergy (Mild, Verified 10/12/18 01:04) stomach cramps amoxicillin Adverse Reaction (Verified 10/12/18 01:04) STOMACH CRAMPS cephalexin [From Keflex] Adverse Reaction (Verified 10/12/18 01:05) Vomiting codeine Adverse Reaction (Verified 10/12/18 01:04) Rash ketorolac [From Toradol] Adverse Reaction (Verified 10/12/18 01:04) Nausea latex Adverse Reaction (Verified 10/12/18 01:04) Hives sulfamethoxazole [From Bactrim] Adverse Reaction (Verified 10/12/18 01:04) STOMACH CRAMPS tramadol Adverse Reaction (Verified 10/12/18 01:04) STOMACH CRAMPS trimethoprim [From Bactrim] Adverse Reaction (Verified 10/12/18 01:04) STOMACH CRAMPS Home Medications: Ambulatory Orders Citalopram Hydrobromide [Celexa] 40 mg PO DAILY 08/09/14 Olanzapine [Zyprexa] 7.5 mg PO BEDTIME 04/01/17 Omeprazole [Prilosec] 20 mg PO BID 04/01/17 Quetiapine Fumarate [Seroquel] 100 mg PO BEDTIME 12/02/17 Atorvastatin Calcium [Lipitor] 10 mg PO BEDTIME 10/12/18 Bisoprolol Fumarate/Hctz [Ziac] 1 tab PO DAILY 10/12/18 Spironolactone [Aldactone] 50 mg PO BEDTIME 10/12/18 Disposition Discussed With: Patient
[2018-10-12] MEDS ORDERED: ALBUTEROL 0.083% NEB NEB STA (01:54)
--- NOTE | 2018-10-12 02:33 | DI ---
EXAM: PA and lateral views of the chest. HISTORY: Cough. FINDINGS: The bones are unremarkable. The cardiac silhouette and pulmonary vasculature are within n ormal limits. The costophrenic angles are clear. No infiltrate or consolidation. Impression: No acute cardiopulmonary disease.
[2018-10-12] MEDS ORDERED: SOLU-MEDROL 125 MG IVP STA (02:41)
[2018-10-12] MEDS ORDERED: SODIUM CHLORIDE 1,000 ML IV STA (02:41)
== END 2018-10-12 04:16 | disposition home or self-care (01) ==
LOC: ED 00:56
DX: J40 Bronchitis, not specified as acute or chronic (principal); F17.210 Nicotine dependence, cigarettes, uncomplicated
CPT/HCPCS: 36415; 85025; 87502; 87651; 94640; 96361; 96374; 96375; 99283